=== PATIENT | male | born 1990 | race Caucasian/White ===

== ENCOUNTER 2016-05-24 20:12 | Emergency (ER) | payer OTHER ==
[~2016-05-24] VITALS: Ht 177.8 cm; Wt 68.0 kg
[2016-05-24] MEDS ORDERED: NORCO 5-325 TA1 EACH PO (21:47)
[2016-05-24] MEDS ORDERED: IBUPROFEN 600600 M1 PO (21:47)
[2016-05-24] MEDS ORDERED: FLEXERIL PO (21:47)
[2016-05-24 22:01] VITALS: BP 124/74
== END 2016-05-24 22:03 | disposition home or self-care (01) ==
LOC: ER 20:12
DX: S39.012A Strain of muscle, fascia and tendon of lower back, initial encounter (principal); F17.210 Nicotine dependence, cigarettes, uncomplicated; X58.XXXA Exposure to other specified factors, initial encounter; Y93.89 Activity, other specified; Y92.89 Other specified places as the place of occurrence of the external cause; Y99.9 Unspecified external cause status